=== PATIENT | male | born 1995 | race Caucasian/White ===

== ENCOUNTER 2019-04-21 14:22 | Emergency (ER) | payer SELFPAY | END 2019-04-21 15:52 | disposition home or self-care (01) | LOC: MADERS 14:22 | DX: A60.00 Herpesviral infection of urogenital system, unspecified (principal); N48.5 Ulcer of penis; R59.0 Localized enlarged lymph nodes; F17.210 Nicotine dependence, cigarettes, uncomplicated | CPT/HCPCS: 99283 ==

== ENCOUNTER 2019-05-09 08:52 | Emergency (ER) | payer SELFPAY ==
[2019-05-09] MEDS ORDERED: diphenhydrAMINE 25 MG CAP ONE (09:07)
== END 2019-05-09 09:45 | disposition home or self-care (01) ==
LOC: MADERS 08:52
DX: T63.441A Toxic effect of venom of bees, accidental (unintentional), initial encounter (principal); F17.210 Nicotine dependence, cigarettes, uncomplicated; F17.290 Nicotine dependence, other tobacco product, uncomplicated; Z71.6 Tobacco abuse counseling
CPT/HCPCS: 99406; Q0163

== ENCOUNTER 2019-07-18 14:51 | Emergency (ER) | payer SELFPAY ==
--- NOTE | 2019-07-18 15:31 | RAD ---
XR Hand Lt 3 View STANDARD: 07/18/2019 3:15 PM CLINICAL INDICATION: Trauma COMPARISON: 02/27/2014 FINDINGS: Fracture:Mildly displaced and apex dorsally angulated fracture involves the distal fifth metacarpal d iaphysis. Arthropathy:None of significance. There is associated soft tissue prominence of the medial aspect of the left hand. IMPRESSION: Mildly displaced, angulated distal fifth metacarpal diaphyseal fracture.
== END 2019-07-18 15:30 | disposition left against medical advice (07) ==
LOC: MADERS 14:51
DX: Z53.21 Procedure and treatment not carried out due to patient leaving prior to being seen by health care provider (principal)